=== PATIENT | female | born 1985 | race African-American/Black ===

== ENCOUNTER 2017-09-17 18:21 | Emergency (ER) | payer MEDICAID ==
[~2017-09-17] VITALS: Ht 165.1 cm; Wt 100.0 kg
[2017-09-17 18:36] VITALS: BP 124/64
== END 2017-09-18 01:01 | disposition left against medical advice (07) ==
LOC: ER 19:20
DX: M54.5 Low back pain (principal); V49.40XA Driver injured in collision with unspecified motor vehicles in traffic accident, initial encounter; Y93.89 Activity, other specified; Y92.410 Unspecified street and highway as the place of occurrence of the external cause
CPT/HCPCS: 99281